=== PATIENT | female | born 1975 | race Caucasian/White ===

== ENCOUNTER 2022-06-18 10:07 | Outpatient (CLI) | payer OTHER, MEDICAID, SELFPAY ==
[2022-06-18 13:11] LABS: Thyroid Stimulating Hormone* 0.548 uIU/mL (0.270-4.20)
== END 2022-06-18 10:08 | disposition home or self-care (01) ==
LOC: LKVREF 10:08
PROVIDERS: PCP Family Medicine; Visit Provider Family Medicine
DX: L65.9 Nonscarring hair loss, unspecified (principal)
CPT/HCPCS: 84443

== ENCOUNTER 2024-08-27 17:07 | Outpatient (CLI) | payer OTHER, MEDICAID, SELFPAY | END 2024-08-27 17:08 | disposition home or self-care (01) | LOC: NFLDREF 08-28 10:18 | PROVIDERS: PCP Family Medicine; Referring Provider Family Medicine; Visit Provider Family Medicine | DX: Z13.220 Encounter for screening for lipoid disorders (principal) | CPT/HCPCS: 80061 ==